=== PATIENT | female | born 1960 | race Caucasian/White ===

== ENCOUNTER 2016-11-23 18:21 | Observation (INO) | payer BC ==
--- NOTE | ~2016-11-23 | HP ---
History And Physical [place] [id number] [facility] [place]. [address] NAME: PHILLIP FRAZIER : 56 STATUS : ADM Axel PAT#: [id number] AGE: 56 ADM/REG DATE : 11/23/16 MR#: [id number] REPORT SERV DATE: 11/24/16 DICTATED BY: KATJA SCHMITZ DATE: 11/24/16 REPORT STATUS : Draft TRANSCRIBED BY: GIBRAN DATE: 11/24/16 DATE OF ADMISSION: 11/23/2016 PRIMARY BOILER REPAIR SUPERVISOR: Benjamin Irvin M.D., Ph.D, F.A.C.C. CHIEF COMPLAINT: Chest pain. HISTORY OF PRESENT ILLNESS: This is a 56-year-old female with history of coronary artery disease and prior stenting to the left circumflex as well as LAD who states a 2-day history of right-sided chest pain. She describes it as "stabbing" typically lasting seconds with radiation to the bilateral shoulders and arms. There has also been increased shortness of breath and fatigue over the last couple of days. The patient described some chills 1 day but no fever. She has not had any recent cough. These chest pains occur at rest and she has not tried any measures at home because they usually dissipate within seconds. She came to our emergency department for further evaluation around 0530 last evening and has been observed overnight in the Chest Pain Observation Unit. Currently, she is chest pain free. Patient history has a history of stent to the LAD in 2010 and left circumflex in 04/2015. Most recent stenting was following an intermediate stress test secondary to chest pain and a Bundy treadmill score of 0. The patient states her current chest pain is not similar to these pains. The patient has some chronic orthopnea. She sleeps with her head of bed elevated and with the fan blowing. She does have history of COPD but is only maintained on a p.r.n. inhaler which she has used once in the last couple of days. Denies any recent wheezing or PND. She does complain of chronic lower extremity edema, worse at the end of the day. She had a bilateral lower extremity ultrasound in the emergency department yesterday which did not indicate any DVT. She also had a CTA of the chest in the emergency department that did not indicate any evidence of PE but does show evidence of emphysema. She has also been treated for some hypokalemia while she is here. States a history of this. The patient is not on any diuretics and denies any recent nausea, vomiting, or diarrhea. MEDICAL HISTORY: 1. Coronary artery disease, status post stent to the LAD in 2010 and drug-eluting stent to the left circumflex in 04/2015 after intermediate stress test secondary to chest pain and Bundy treadmill score of 0. 2. Hypertension. 3. Mixed hyperlipidemia. 4. Tobacco abuse. 5. Anxiety and depression. 6. COPD, emphysema. SURGICAL HISTORY: Hysterectomy and cholecystectomy. HOME MEDICATIONS: Albuterol 2 puffs inhaled p.r.n. shortness of breath, Norvasc 10 every morning, aspirin 81 every morning, Lipitor 20 at bedtime, Motrin 400 b.i.d. p.r.n., Toprol- XL 25 mg every morning, Protonix 40 every morning, Paxil 10 mg every morning, Brilinta 90 mg b.i.d., Prempro 0.625 mg and 2.5 mg 1 tab every morning. History And Physical [address] [address] NAME: PHILLIP FRAZIER : 56 STATUS : ADM Axel PAT#: [id number] AGE: 56 ADM/REG DATE : 11/23/16 MR#: [id number] REPORT SERV DATE: 11/24/16 DICTATED BY: KATJA SCHMITZ DATE: 11/24/16 REPORT STATUS : Draft TRANSCRIBED BY: GIBRAN DATE: 11/24/16 ALLERGIES: CODEINE CAUSES RASH. SOCIAL HISTORY: The patient is single, currently her son is living with her. She smokes one half pack per day and she has been smoking for 30 years. Denies alcohol or illicit drug use. 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 FAMILY HISTORY: Negative for premature cardiovascular disease among her first degree relatives. REVIEW OF SYSTEMS: Negative except as indicated above. PHYSICAL EXAMINATION: VITAL SIGNS: Blood pressure 132/73, heart rate 60, temperature 98.2, pulse oximetry 93% on room air, BMI 24.2. GENERAL: Well developed, well nourished, in no acute distress. HEENT: Anicteric. Normal EOM. Head normocephalic. PERRLA, no xanthelasma. NECK: Supple. No JVD. Carotids normal without bruits. LUNGS: Clear to auscultation bilaterally anterior and posterior. Respirations even and unlabored. CARDIAC: S1, S2 regular rate and rhythm. No murmurs, rubs, or gallops. No chest wall tenderness. ABDOMEN: Normal bowel sounds. Soft and nontender to palpation. No masses or organomegaly. EXTREMITIES: Trace edema to bilateral lower extremities. DP/PT and radial pulses palpable bilaterally. No clubbing or cyanosis. There is evidence of varicosities. Normal distal pulses. SKIN: Warm and dry. Normal turgor. No pallor or cyanosis. MUSCULOSKELETAL: Moving all extremities x4. Normal muscle strength. NEURO/PSYCH: Alert and oriented with appropriate affect. LABORATORY DATA: White blood count 6.4, hemoglobin 14.1, hematocrit 40.7. D-dimer 0.58. Sodium 1.4, potassium 2.8, corrected to 4.2, BUN 11, creatinine 0.6. Troponin less than 0.02 x3. BNP 39.1, magnesium 2.1. Chest x-ray shows lungs clear. Heart size is normal. CTA of the chest shows no evidence of PE. Moderate severe centrilobular upper lobe emphysema pattern as well as mild ground-glass opacities suggesting underlying chronic interstitial lung disease. Minor bibasilar segmental atelectasis. Mild cardiomegaly with moderate coronary artery calcifications. Venous duplex of bilateral lower extremities indicates no evidence of DVTs. EKGs interpreted by myself indicates sinus rhythm and sinus bradycardia with poor R-wave progression and nonspecific ST and T-wave changes in the lateral leads. No change from baseline. ASSESSMENT AND PLAN: 1. Right-sided chest pain with atypical features in this 56-year-old female with history of coronary artery disease. She has been observed overnight in the Chest Pain Observation Unit, is negative for acute coronary syndrome. Recommend proceeding with a nuclear stress test today. If this is low risk, we will plan to discharge her home to [facility] [address] 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 2. Hypokalemia. Not certain of etiology. Kidney function appears normal. The patient is not on diuresis nor she had any excessive fluid losses. I will plan to send her home with prescription of potassium daily and I have instructed her to follow up with Dr. Eid's lab in the next one to two weeks. 3. Coronary artery disease with history of stents to the LAD and left circumflex arteries. She is compliant with aspirin, Brilinta, beta estrellita, and statin therapy. We will continue. 4. Tobacco abuse. The patient states she has tried Chantix in the past without success. I recommended nicotine replacement therapy. She seems amenable to this. I have also offered some resources including smokefree.gov and the [place] [employer]uit[employer]. 5. Chronic obstructive pulmonary disease with emphysema changes on CTA of the chest. The patient did not seem to be aware of her history of chronic obstructive pulmonary disease. Continue albuterol p.r.n. and follow up with primary care. 6. Hypertension. Blood pressure appears controlled. Continue patient's home medicines. DBT/GIBRAN Katja Schmitz NP / [id number] CC: Francheska Cummings, MSN, HAND BUFFER-BC Iman Eid M.D. Benjamin Irvin M.D., Ph.D, F.A.C.C.
[~2016-11-23 18:21] MED LIST: ASA5GR PO; ASAB PO; ASACOL PO; BRILINTA90 MG PO; ESTRADIOL2 MG OR; HCTZ25B PO; LIPITOR10 PO; MULTIVITAMI1 PO; NITROSTAT0.4 MG SL; NORV10 PO; PAX10 PO; PREMPRO1 TA2 PO; PREV30 PO; PROTONIX PO; TOPXL25 PO; ZOCOR20 PO
[2016-11-23 18:24] LABS: BASOPHILS 0.6 %; BASOPHILS ABSOLUTE 0.04 10/3/uL (0.0-0.16); EOSINOPHILS 1.7 %; EOSINOPHILS ABSOLUTE 0.11 10/3/uL (0.0-0.53); ER CBC TAT 0 Hrs 08 Mins; HEMATOCRIT 40.7 % (36.0-48.0); HEMOGLOBIN 14.1 g/dL (12.0-16.0); IMMATURE GRANULOCYTES 0.2 %; IMMATURE GRANULOCYTES ABSOLUTE 0.01 10/3/uL (0.0-0.11); LYMPHOCYTES 33.9 %; LYMPHOCYTES ABSOLUTE 2.18 10/3/uL (0.67-4.30); MEAN CORPUS HGB CONC 34.6 g/dL (32.0-36.0); MEAN CORPUSCULAR HEMOGLOB 32.1 pg (26.0-34.0); MEAN CORPUSCULAR VOLUME 92.7 fL (80-100); MONOCYTES 7.3 %; MONOCYTES ABSOLUTE 0.47 10/3/uL (0.21-1.20); NEUTROPHILS 56.3 %; NEUTROPHILS ABSOLUTE 3.63 10/3/uL (2.02-8.40); PLATELET COUNT 239 10/3/uL (150-400); RBC DISTRIBUTION WIDTH 13.3 % (12.0-16.0); RED CELL COUNT 4.39 10/6/uL (4.0-5.6); WHITE BLOOD CELLS 6.4 10/3/uL (4.5-10.5)
[2016-11-23 18:25] LABS: MANUAL DIFF NO %
[2016-11-23 18:28] LABS: PROTIME (NOT ORD) 13.5 SEC (12.0-14.5)
[2016-11-23 18:36] LABS: BUN (BLOOD UREA NITROGEN) 9 MG/DL (6-23); CALCIUM, SERUM 8.9 MG/DL (8.5-10.4); CHEST PAIN PROFILE TAT 0 Hrs 20 Mins; CHLORIDE, SERUM 106 MMOL/L (96-112); CO2 (CARBON DIOXIDE) 26 MMOL/L (24-34); CREATININE 0.83 MG/DL (0.55-1.02); GFR AFRICAN AMERICAN 90 ML/MIN (>=60); GFR NON AFRICAN AMERICAN 78 ML/MIN (>=60); GLUCOSE, SERUM 87 MG/DL (60-99); POTASSIUM, SERUM 3.1 MMOL/L (3.5-5.3); SODIUM, SERUM 142 MMOL/L (135-148); TROPONIN I <0.02 NG/ML (<0.05)
[2016-11-23 19:05] LABS: D-DIMER QUANTITATIVE 0.58 ug/mLFEU (< 0.50)
[2016-11-23] MEDS ORDERED: NORV10 PO (22:34)
[2016-11-23] MEDS ORDERED: TOPXL25 PO (22:34)
[2016-11-23] MEDS ORDERED: PAX10 PO (22:34)
[2016-11-23] MEDS ORDERED: BRILINTA90 MG PO (22:34)
[2016-11-23] MEDS ORDERED: LIPITOR20 PO (22:34)
[2016-11-23] MEDS ORDERED: PROTONIX PO (22:35)
[2016-11-23] MEDS ORDERED: PREMPRO PO (22:35)
[2016-11-23] MEDS ORDERED: VENTOLIN HFA INH (22:36)
[2016-11-23] MEDS ORDERED: IBU400 PO (22:36)
[2016-11-23] MEDS ORDERED: ASAB PO (22:37)
[2016-11-24 01:54] LABS: BUN (BLOOD UREA NITROGEN) 8 MG/DL (6-23); CALCIUM, SERUM 8.8 MG/DL (8.5-10.4); CHLORIDE, SERUM 108 MMOL/L (96-112); CO2 (CARBON DIOXIDE) 26 MMOL/L (24-34); CREATININE 0.91 MG/DL (0.55-1.02); GFR AFRICAN AMERICAN 81 ML/MIN (>=60); GFR NON AFRICAN AMERICAN 70 ML/MIN (>=60); SODIUM, SERUM 146 MMOL/L (135-148)
[2016-11-24 01:55] LABS: GLUCOSE, SERUM 117 MG/DL (60-99); POTASSIUM, SERUM 2.8 MMOL/L (3.5-5.3)
[2016-11-24 04:07] LABS: TROPONIN I <0.02 NG/ML (<0.05)
[2016-11-24 04:53] LABS: BUN (BLOOD UREA NITROGEN) 10 MG/DL (6-23); CALCIUM, SERUM 8.7 MG/DL (8.5-10.4); CHLORIDE, SERUM 109 MMOL/L (96-112); CO2 (CARBON DIOXIDE) 25 MMOL/L (24-34); GFR AFRICAN AMERICAN 94 ML/MIN (>=60); GFR NON AFRICAN AMERICAN 81 ML/MIN (>=60); GLUCOSE, SERUM 105 MG/DL (60-99); SODIUM, SERUM 144 MMOL/L (135-148); TROPONIN I <0.02 NG/ML (<0.05)
[2016-11-24 04:56] LABS: POTASSIUM, SERUM 3.4 MMOL/L (3.5-5.3)
[2016-11-24 09:02] LABS: BUN (BLOOD UREA NITROGEN) 11 MG/DL (6-23); CALCIUM, SERUM 8.5 MG/DL (8.5-10.4); CHLORIDE, SERUM 111 MMOL/L (96-112); CO2 (CARBON DIOXIDE) 21 MMOL/L (24-34); CREATININE 0.69 MG/DL (0.55-1.02); GFR AFRICAN AMERICAN 111 ML/MIN (>=60); GFR NON AFRICAN AMERICAN 96 ML/MIN (>=60); GLUCOSE, SERUM 94 MG/DL (60-99); SODIUM, SERUM 144 MMOL/L (135-148)
[2016-11-24 09:05] LABS: POTASSIUM, SERUM 4.2 MMOL/L (3.5-5.3)
[2016-11-24] MEDS ORDERED: KDUR20 PO (14:16)
[2016-11-24] MEDS ORDERED: NITROQUICK0.4 MG SL (14:17)
[2016-11-24] MEDS ORDERED: HABIT21 (14:19)
== END 2016-11-24 15:05 | disposition home or self-care (01) ==
LOC: ER 18:21 → CDU1 22:44 → CDU2 23:07
PROVIDERS: Clinical Nurse Specialist; Hospitalist
DX: R07.89 Other chest pain (principal); E87.6 Hypokalemia; I25.10 Atherosclerotic heart disease of native coronary artery without angina pectoris; J43.9 Emphysema, unspecified; E78.2 Mixed hyperlipidemia; F41.9 Anxiety disorder, unspecified; F32.9 Major depressive disorder, single episode, unspecified; J44.9 Chronic obstructive pulmonary disease, unspecified; F17.210 Nicotine dependence, cigarettes, uncomplicated; I10 Essential (primary) hypertension; Z90.710 Acquired absence of both cervix and uterus; Z90.49 Acquired absence of other specified parts of digestive tract; Z79.82 Long term (current) use of aspirin; Z79.899 Other long term (current) drug therapy; Z88.5 Allergy status to narcotic agent
CPT/HCPCS: 71020; 71275; 78452; 80048; 83735; 83880; 84484; 85025; 85379; 85610; 85730; 93005; 93017; 93970; 99285; A9270-GY; A9502; G0378; Q9967